=== PATIENT | female | born 1970 | race Caucasian/White ===

== ENCOUNTER → 2016-06-04 | Outpatient (CLI) | payer BC ==
--- NOTE | 2016-06-07 12:46 | MAMMOGRAPHY REPORT ---
BILATERAL DIGITAL SCREENING MAMMOGRAM TOMOSYNTHESIS WITH CAD: 06/04/2016 CLINICAL HISTORY: Routine screening. Patient has no complaints. TECHNIQUE: Breast tomosynthesis in addition to standard 2D mammography was performed. Current study was also evaluated with a Computer Aided Detection (CAD) system. COMPARISON: Comparison is made to exams dated: 05/30/2015 mammogram, 05/24/2014 mammogram, 05/18/2013 m ammogram, 05/14/2011 mammogram, 05/16/2012 mammogram, and 05/12/2010 mammogram - [facility]. BREAST COMPOSITION: There are scattered areas of fibroglandular density in both breasts. FINDINGS: No suspicious masses, calcifications, or areas of architectural distortion are noted in e ither breast. There has been no significant interval change compared to prior exams. IMPRESSION: ACR BI-RADS CATEGORY 1: NEGATIVE There is no mammographic evidence of malignancy. A 1 year screening mammogram is recommended. The p atient will receive written notification of the results. Approximately 10% of breast cancers are not detected with mammography. A negative mammographic repor t should not delay biopsy if a clinically suggestive mass is present. Karely Stewart M.D. ah/:06/04/2016 15:52:59 Farm Truck Driver: Dina Villagran RT(R)(M), [facility] letter sent: Normal 1/2 BI-RADS Code: ACR BI-RADS Category 1: Negative
== END | disposition home or self-care (01) ==
LOC: C.MAMM 10:59
PROVIDERS: ATTEND Family Medicine
DX: Z12.31 Encounter for screening mammogram for malignant neoplasm of breast (principal)

== ENCOUNTER 2017-04-03 15:20 | Emergency (ER) | payer BC, OTHER ==
[~2017-04-03] VITALS: Ht 160 cm; Wt 58.6 kg
[2017-04-03 15:40] VITALS: TEMP 36.8; Ht 160 cm; Wt 58.6 kg
[2017-04-03] MEDS ORDERED: MULT-506 PO (16:10)
[2017-04-03] MEDS ORDERED: FERR1TAB23 PO (16:10)
[2017-04-03] MEDS ORDERED: IBUP-103 PO (16:10)
[2017-04-03] MEDS ORDERED: DEXT30TA7 PO (16:10)
[2017-04-03] MEDS ORDERED: CHOL1000 PO (16:10)
[2017-04-03] MEDS ORDERED: ESTR10CR PV (16:10)
[2017-04-03] MEDS ORDERED: DiphenhydrAMINE HCL 50 MG/ML VIAL IV STA (16:12)
[2017-04-03] MEDS ORDERED: PROCHLORPERAZINE 5 MG/ML 2 ML VIAL IV STA (16:12)
[2017-04-03] MEDS ORDERED: SODIUM CHLORIDE 0.9% 1000ML 1,000 ML IV STA (16:12)
[2017-04-03 16:54] LABS: BASO % 0.2 %; BASO ABS # 0.02 K/uL (0-0.2); EOS % 0.1 %; EOS ABS # 0.01 K/uL (0-0.5); HEMATOCRIT 34.3 % (37-47); IG# 0.02 K/uL (0.00-0.02); LYMPH ABS # 0.93 K/uL (1.2-3.4); MEAN CELL VOLUME 87.1 fL (80-100); MEAN CORPUSCULAR HEMOGLOBIN 30.5 pg (25-34); MEAN PLATELET VOLUME 9.4 fL (7.4-10.4); MONO % 4.8 %; MONO ABS # 0.41 K/uL (0.11-0.59); NEUT % 83.7 %; NEUT ABS # 7.07 K/uL (1.4-6.5); PLATELET COUNT 211 K/uL (130-400); RED CELL DISTRIBUTION WIDTH CV 12.3 % (11.5-14.5); RED CELL DISTRIBUTION WIDTH SD 39.3 fL (36.4-46.3); WHITE BLOOD COUNT 8.46 K/uL (4.8-10.8)
[2017-04-03 17:04] LABS: PTT PATIENT 30.8 SECONDS (21.0-31.0)
[2017-04-03 17:06] VITALS: O2SAT 95
[2017-04-03 17:12] LABS: CALCIUM 8.4 mg/dl (8.5-10.1); CREATININE 0.65 mg/dl (0.60-1.20)
--- NOTE | 2017-04-03 17:42 | DIAGNOSTIC IMAGING REPORT ---
HEAD WITHOUT CONTRAST (CT) CLINICAL HISTORY: 47 years-old Female presenting with TUCKER eval for bleed/mass. TECHNIQUE: Multidetector CT imaging of the head was performed without the use of intravenous contrast. IV contrast: None. A dose lowering technique was used consistent with the principles of ALARA (as low as reasonably achievable). COMPARISON: None. CT DOSE (mGy.cm): The estimated cumulative dose is 537.48 mGy.cm. FINDINGS: Goldbeater topogram: Unremarkable. Ventricles and sulci normal in size. Brain parenchyma normal in appearance with preserved schulz-white differentiation. No mass effect or midline shift. No hemorrhage or acute territorial infarct. No extra-axial fluid collection. Paranasal sinuses and mastoid air cells clear. Calvarium intact. IMPRESSION: 1. No acute intracranial abnormality. Electronically signed by: Emre Middleton M.D. 04/03/2017 5:41 PM Dictated Date/Time: 04/03/2017 5:39 PM
--- NOTE | 2017-04-03 18:06 | DIAGNOSTIC IMAGING REPORT ---
CHEST 2 VIEWS ROUTINE CLINICAL HISTORY: 47 years-old Female presenting with cp, eval for pna. TECHNIQUE: PA and lateral views of the chest were obtained. COMPARISON: None. FINDINGS: Cardiomediastinal silhouette normal. Lungs and pleural spaces clear. Osseous structures normal. Upper abdomen normal. IMPRESSION: 1. No acute cardiopulmonary disease. Electronically signed by: Emre Middleton M.D. 04/03/2017 6:04 PM Dictated Date/Time: 04/03/2017 6:04 PM
[2017-04-03 18:09] LABS: INFLUENZA A PCR Neg for Influ A (NEG); INFLUENZA B PCR Neg for Influ B (NEG)
[2017-04-03 20:08] VITALS: BP 104/68; PULSE 60; O2SAT 98
--- NOTE | 2017-04-03 20:30 | EMERGENCY ROOM VISIT NOTE ---
History Report prepared by Octavio: Lata Abarca Under the Supervision of: Dr. Brian Lemus M.D. First contact with patient: 16:02 Chief Complaint: CHEST PAIN Stated Complaint: FLU SYMPTOMS Nursing Triage Summary: Chest pain since Tuesday and a 10 headache. Went to clinic and had ekg performed which was normal but pt feels "like I got hit by a truck" so sent here for further eval. Denies cough, denies sore throat, denies body aches or fevers. History of migraines. History of Present Illness The patient is a 47 year old female who presents to the Emergency Room with complaints of constant chest pressure starting 4 days ago. She was sent to the ED from the clinic today. She feels this pressure especially at night with lying down. She has felt like she cannot take a full breath. She woke up this morning at 0500 feeling like she "got hit by a truck". She reports a headache which she describes as a sinus headache. The chest pain is less severe today. She vomited 1 hour ago. She has been constipated this week. She denies any fever , sore throat, rhinorrhea, cough, body aches, diarrhea, urinary symptoms, leg swelling, leg pain, or abdominal pain. She started having headaches last month. She has had 2 headaches which she describes as migraines. She does not have a diagnosed history of migraines. She is on hormone replacement. She has not had a period in 3-4 years. She does not smoke. She denies any recent long trips. She denies any family history of blood clots. She denies any history of diabetes or hypertension. Her father had a SD at age 79. Source of History: patient Onset: 4 days ago Position: chest Quality: pressure Timing: constant Modifying Factors (Worsening): other (lying down at night) Associated Symptoms: + headache, + SOB, + vomiting, No fevers, No sorethroat , No cough, No abdominal pain, No diarrhea, No urinary symptoms Note: Pt reports constipation. Review of Systems See HPI for pertinent positives & negatives. A total of 10 systems reviewed and were otherwise negative. Past Medical & Surgical No history of diabetes or hypertension. Family History Heart disease Social History Smoking Status: Never Smoker Marital Status: Current/Historical Medications Scheduled Cholecalciferol (Vitamin D3), 1,000 UNITS PO DAILY Temltkvvj-Ijakjuq-Pkpwcmjjiqfe (Biest/Progesterone), 1 DOSE PV DIRECTED Ferrous Sulfate (Iron), 325 MG PO DAILY Multivitamin (Multivitamin), 1 TAB PO DAILY Scheduled PRN Dextromethorphan-Guaifenesin (Mucinex Dm), 1 TAB PO Q12 PRN for COLD SYMPTOMS Ibuprofen Tab (Advil), 200-600 MG PO Q4H PRN for Pain or Fever Allergies Coded Allergies: Sulfa Drugs (Verified Allergy, Severe, SWELLING IN THROAT FROM BACTRIM, 04/03/17) Sulfamethoxazole w/Trimethoprim (Verified Allergy, Severe, THROAT SWELLING , 04/03/17) Amoxicillin (Verified Allergy, Intermediate, RASH, 04/03/17) Penicillins (Verified Allergy, Intermediate, RASH, 04/03/17) Physical Exam Vital Signs Date Time Temp Pulse Resp B/P (MAP) Pulse Ox O2 Delivery O2 Flow Rate FiO2 04/03/17 20:08 60 18 104/68 98 04/03/17 18:38 89 20 110/69 98 Room Air 04/03/17 17:08 72 20 103/56 99 Room Air 04/03/17 17:06 95 Room Air 04/03/17 15:40 36.8 66 18 110/66 100 Room Air Physical Exam Constitutional: Vital signs reviewed. Eyes: Pupils are equal round reactive to light. Conjunctiva are noninjected. ENT: Pharynx is clear without erythema or exudate. Mucous membranes are moist. Neck supple without meningeal signs. Respiratory: Clear to auscultation bilaterally. Breath sounds are equal bilaterally. Cardiovascular: Regular rate and rhythm. No rubs or gallops. GI: Soft, nondistended and nontender. Bowel sounds are present. Musculoskeletal: No peripheral edema. No lower extremity tenderness. Integumentary: No cyanosis. Neurological: The patient is awake and alert. Cranial nerves II-XII are intact. Motor is 5 out of 5 all extremities. Sensation is intact to light touch all extremities. Normal speech. No pronator drift. Psychiatric: Normal affect. Medical Decision & Procedures ER Provider Diagnostic Interpretation: X-ray results as stated below per interpretation by me and the radiologist. Radiology results as stated below per my review and the radiologist's interpretation: CHEST 2 VIEWS ROUTINE CLINICAL HISTORY: 47 years-old Female presenting with cp, eval for pna. TECHNIQUE: PA and lateral views of the chest were obtained. COMPARISON: None. FINDINGS: Cardiomediastinal silhouette normal. Lungs and pleural spaces clear. Osseous structures normal. Upper abdomen normal. IMPRESSION: 1. No acute cardiopulmonary disease. Electronically signed by: Emre Middleton M.D. 04/03/2017 6:04 PM Dictated Date/Time: 04/03/2017 6:04 PM HEAD WITHOUT CONTRAST (CT) CLINICAL HISTORY: 47 years-old Female presenting with TUCKER eval for bleed/mass. TECHNIQUE: Multidetector CT imaging of the head was performed without the use of intravenous contrast. IV contrast: None. A dose lowering technique was used consistent with the principles of ALARA (as low as reasonably achievable). COMPARISON: None. CT DOSE (mGy.cm): The estimated cumulative dose is 537.48 mGy.cm. FINDINGS: Offset Machine Operator topogram: Unremarkable. Ventricles and sulci normal in size. Brain parenchyma normal in appearance with preserved schulz-white differentiation. No mass effect or midline shift. No hemorrhage or acute territorial infarct. No extra-axial fluid collection. Paranasal sinuses and mastoid air cells clear. Calvarium intact. IMPRESSION: 1. No acute intracranial abnormality. Electronically signed by: Emre Middleton M.D. 04/03/2017 5:41 PM Dictated Date/Time: 04/03/2017 5:39 PM Laboratory Results 04/03/17 16:40 Red Blood Count 3.94, Mean Corpuscular Volume 87.1, Mean Corpuscular Hemoglobin 30.5, Mean Corpuscular Hemoglobin Concent 35.0, Mean Platelet Volume 9.4, Neutrophils (%) (Auto) 83.7, Lymphocytes (%) (Auto) 11.0, Monocytes (%) (Auto) 4.8, Eosinophils (%) (Auto) 0.1, Basophils (%) (Auto) 0.2, Neutrophils # (Auto) 7.07, Lymphocytes # (Auto) 0.93, Monocytes # (Auto) 0.41, Eosinophils # (Auto) 0.01, Basophils # (Auto) 0.02 04/03/17 16:40 Test 04/03/17 16:40 04/03/17 16:45 04/03/17 17:20 04/03/17 18:25 White Blood Count 8.46 K/uL (4.8-10.8) Red Blood Count 3.94 M/uL (4.2-5.4) Hemoglobin 12.0 g/dL (12.0-16.0) Hematocrit 34.3 % (37-47) Mean Corpuscular Volume 87.1 fL (80-100) Mean Corpuscular Hemoglobin 30.5 pg (25-34) Mean Corpuscular Hemoglobin Concent 35.0 g/dl (32-36) Platelet Count 211 K/uL (130-400) Mean Platelet Volume 9.4 fL (7.4-10.4) Neutrophils (%) (Auto) 83.7 % Lymphocytes (%) (Auto) 11.0 % Monocytes (%) (Auto) 4.8 % Eosinophils (%) (Auto) 0.1 % Basophils (%) (Auto) 0.2 % Neutrophils # (Auto) 7.07 K/uL (1.4-6.5) Lymphocytes # (Auto) 0.93 K/uL (1.2-3.4) Monocytes # (Auto) 0.41 K/uL (0.11-0.59) Eosinophils # (Auto) 0.01 K/uL (0-0.5) Basophils # (Auto) 0.02 K/uL (0-0.2) RDW Standard Deviation 39.3 fL (36.4-46.3) RDW Coefficient of Variation 12.3 % (11.5-14.5) Immature Granulocyte % (Auto) 0.2 % Immature Granulocyte # (Auto) 0.02 K/uL (0.00-0.02) Prothrombin Time 11.0 SECONDS (9.0-12.0) Prothromb Time International Ratio 1.0 (0.9-1.1) Activated Partial Thromboplast Time 30.8 SECONDS (21.0-31.0) Partial Thromboplastin Ratio 1.2 Anion Gap 6.0 mmol/L (3-11) Est Creatinine Clear Calc Drug Dose 86.6 ml/min Estimated GFR () 120.8 Estimated GFR (Non- 104.3 BUN/Creatinine Ratio 22.5 (10-20) Calcium Level 8.4 mg/dl (8.5-10.1) Bedside D-Dimer 75 ng/mlFEU (0-450) Influenza Type A (RT-PCR) Neg for Influ A (NEG) Influenza Type B (RT-PCR) Neg for Influ B (NEG) Urine Color YELLOW Urine Appearance TURBID (CLEAR) Urine pH 8.0 (4.5-7.5) Urine Specific [place] 1.013 (1.000-1.030) Urine Protein NEG (NEG) Urine Glucose (UA) NEG (NEG) Urine Ketones TRACE (NEG) Urine Occult Blood NEG (NEG) Urine Nitrite NEG (NEG) Urine Bilirubin NEG (NEG) Urine Urobilinogen NEG (NEG) Urine Leukocyte Esterase TRACE (NEG) Urine WBC (Auto) 1-5 /hpf (0-5) Urine RBC (Auto) 5-10 /hpf (0-4) Urine Hyaline Casts (Auto) 1-5 /lpf (0-5) Urine Epithelial Cells (Auto) >30 /lpf (0-5) Urine Bacteria (Auto) NEG (NEG) Test 04/03/17 19:24 Bedside Troponin I < 0.030 ng/ml (0-0.045) Laboratory results as reviewed by me. Medications Administered Medications (Trade) Dose Ordered Sig/Niraj Route Start Time Stop Time Status Last Admin Dose Admin Prochlorperazine Edisylate (Compazine Inj) 10 mg NOW STAT IV 04/03/17 16:12 04/03/17 16:15 DC 04/03/17 17:11 10 MG Diphenhydramine HCl (Benadryl Inj) 50 mg NOW STAT IV 04/03/17 16:12 04/03/17 16:15 DC 04/03/17 17:11 50 MG Sodium Chloride 1,000 ml @ 999 mls/hr Q1H1M STAT IV 04/03/17 16:12 04/03/17 17:12 DC 04/03/17 17:10 999 MLS/HR ECG Indication: chest pain Rate (beats per minute): 62 Rhythm: normal sinus Findings: RBBB (incomplete), no ectopy Comparison ECG Date: no prior available Change: Patient's electrocardiogram per my interpretation. ED Course 1603: The patient was evaluated in room C9. A complete history and physical exam was performed. 1611: NSS 1000 ml @ 999 mls/hr IV, Benadryl Inj 50 mg IV, Compazine Inj 10 mg IV. 1818: I reevaluated the patient. Her headache is much better. I had a long discussion with her and her about subarachnoid hemorrhage, meningitis, and lumbar puncture. They are currently stating that they do not wish to have it done, but will consider it further. She is giving a urine sample now. 1900: I reevaluated the patient. She and her continue to decline lumbar puncture at this time. She will be discharged home if her second troponin is negative. They understand the risks of a missed subarachnoid hemorrhage. I recommended CT angiogram as an alternative to lumbar puncture. She and her declined that as well. 1944: I reevaluated the patient. They continue to decline CT angiogram and lumbar puncture. I discussed nury's findings with them. They verbalized agreement of the treatment plan. She was discharged home. Medical Decision This is a 47-year-old female who presents with headache and chest pain. Differential diagnosis includes pneumonia, pulmonary embolus, acute coronary syndrome, influenza, migraine headache, intracranial mass, intracranial hemorrhage. I did perform a limited focused review of portions of the patient' s old chart on the electronic medical record. The patient has had no recent pertinent visits to this hospital. I did evaluate the patient as noted above. Patient is presenting with a headache. She has had headaches since February. She has never been diagnosed by her doctor with migraines but she describes them as such. She also complains of chest pain which has been constant since Tuesday. She states she still has it and it has been unremitting although lessened to a degree today. IV access was established. I did treat the patient with IV Compazine, Benadryl and normal saline IV. I did obtain a flu test which was negative. I did order and personally review the patient's 12-lead EKG and chest x-ray as described above. I did order and review the patient's blood work as noted in the electronic medical record. D-dimer and troponin is negative. She does have hyponatremia. I did order a CT of the head. I did review the images myself as well as the radiology report as described above. There is no evidence of hemorrhage or mass. I did reassess the patient. She is feeling much better. Her chest pain and her headache had lessened. I did discuss the test results with her and her . I did discuss the possibility of subarachnoid hemorrhage with her and had a lengthy discussion regarding the imaging studies performed today as well as the benefits of obtaining a lumbar puncture as well as the risks and consequences of an undiagnosed subarachnoid hemorrhage. She did not wish to have the lumbar puncture done. Her also agreed with this decision. She and her were able to understand my concerns. I did obtain a urinalysis as well as a repeat troponin. The urine analysis did not show an infection. The repeat troponin was negative. Her symptoms do not seem cardiac in nature given she has had her chest pain unremitting we since Tuesday and without any bump in her troponin. I did however recommend she follow closely with her doctor for further workup of her chest pain. I did ask her again about performing a lumbar puncture and she and her declined. I did offer the alternative of a CT angiogram of her brain but she declined this as well. She did wish to go home. She was told to return at any time should she change her mind or have any worsening or new symptoms. She was discharged in good condition. Medication Reconcilliation Current Medication List: was personally reviewed by me Blood Pressure Screening Patient's blood pressure: Normal blood pressure Blood pressure disposition: Did not require urgent referral Impression Primary Impression: Acute headache Additional Impressions: Acute chest pain Hyponatremia Scribe Attestation The scribe's documentation has been prepared under my direct and personally reviewed by me in its entirety. I confirm that the note above accurately reflects all work, treatment, procedures, and medical decision making performed by me. Departure Information Dispostion Home / Self-Care Referrals Perez Carrillo M.D. (PCP) Forms Call Back Authorization, HOME CARE DOCUMENTATION FORM, IMPORTANT VISIT INFORMATION Patient Instructions Chest Pain - [facility], Headache Pain, Hyponatremia Dc, My [facility] Additional Instructions You have been examined and treated today on an emergency basis only. This is not a substitute for, or an effort to provide, complete comprehensive medical care. It is impossible to recognize and treat all injuries or illnesses in a single emergency department visit. It is therefore important that you follow up closely with your physician next week. Call as soon as possible for an appointment. Return for worsening symptoms or if you develop trouble breathing , fever, numbness or weakness on one side of your body, difficulties with your speech or walking, or any other concerning symptoms. Problem Qualifiers Primary Impression: Acute headache Headache type: unspecified Intractability: not intractable Qualified Codes : R51 - Headache
== END 2017-04-03 19:58 | disposition home or self-care (01) ==
LOC: C.EDB 15:21 → C.EDC 19:58
DX: R51 Headache (principal); R07.9 Chest pain, unspecified; E87.1 Hypo-osmolality and hyponatremia; Z79.899 Other long term (current) drug therapy; Z82.49 Family history of ischemic heart disease and other diseases of the circulatory system